=== PATIENT | female | born 1965 | race Caucasian/White ===

== ENCOUNTER 2017-08-11 21:53 | Emergency (ER) | payer OTHER ==
[~2017-08-11] VITALS: Ht 157.4 cm; Wt 48.5 kg
[2017-08-11] MEDS ORDERED: MIRALAX POWDER17 G1 PO (23:01)
== END 2017-08-11 23:58 | disposition home or self-care (01) ==
LOC: ED 21:53
DX: K59.00 Constipation, unspecified (principal); F17.200 Nicotine dependence, unspecified, uncomplicated; Z91.041 Radiographic dye allergy status